=== PATIENT | male | born 1960 | race Hispanic/Latino ===

== ENCOUNTER → 2018-06-21 | Outpatient (CLI) | payer BC ==
[~2018-06-21] MED LIST: GADOBENATE DIMEGLUMINE 1 ML IV ONE
[2018-06-21 08:11] LABS: CREATININE, SERUM 1.27 mg/dL (0.72-1.25)
--- NOTE | 2018-06-22 09:40 | Diagnostic Imaging Report ---
EXAMINATION: MRI Abdomen with and without contrast. TECHNIQUE: Axial T1 nonfat sat in and out of phase, axial T2 fat sat, coronal T2 with and without fat sat, axial DWI and ADC MR images of the abdomen were obtained before and after the administration of 19 cc of gadolinium. Axial T1 fat sat GRE dynamic images in precontrast, arterial, venous and delayed phases were obtained. Subtraction images were also performed. CLINICAL HISTORY:Abdominal pain for several months COMPARISON: None FINDINGS: LOWER THORAX: Linear opacity in the posteromedial left lower lobe likely represents subsegmental atelectasis.. LIVER: The hepatic size and contour are normal.. Diffuse signal dropout of the hepatic parenchyma on out of phase images, consistent with steatosis . No focal hepatic lesions. BILIARY: No intra or extrahepatic biliary ductal dilation. No intraluminal filling defects. Normal luminal contour and tapering to the ampulla.. Gallbladder is not visualized.. PANCREAS: No mass or ductal dilatation. SPLEEN: No splenomegaly. ADRENALS: No nodules. KIDNEYS: No hydronephrosis or solid enhancing mass in the imaged portion of the kidneys. PERITONEUM / RETROPERITONEUM: No upper abdominal free fluid. GI TRACT: The visualized bowel shows no dilation or obstruction. LYMPH NODES: No upper abdominal lymphadenopathy. VESSELS: The celiac trunk, superior and inferior mesenteric and bilateral renal arteries are patent. The portal, superior mesenteric and splenic veins are patent. No collateral circulation. BONES AND SOFT TISSUES: No abnormal bone marrow signal. No soft tissue abnormalities. IMPRESSION: 1. Diffuse hepatic steatosis (calculated hepatic fat fraction 21.5%, hepatic fat percentage 24.5%, consistent with moderate steatosis). No focal lesions. 2. Otherwise, essentially unremarkable abdominal MRI Signed by: Dr. Kong Hou M.D. on 06/22/2018 9:37 AM
== END ==
LOC: MRI 07:13
PROVIDERS: ATTEND Internal Medicine Gastroenterology
DX: R10.9 Unspecified abdominal pain (principal)
CPT/HCPCS: 36415; 74183; 82565; 84520; A9577

== ENCOUNTER 2025-01-24 11:01 | Inpatient (IN) | payer BC ==
[~2025-01-24] VITALS: Ht 172.7 cm; Wt 86.2 kg
[2025-01-24 11:35] LABS: BASOPHILS # (AUTO) 0.1 (0.0-0.1); BASOPHILS % 0.4 % (0.0-1.0); EOSINOPHILS # (AUTO) 3.1 (0.0-0.4); EOSINOPHILS % 15.9 % (0.0-6.0); HEMATOCRIT 51.2 % (38.2-49.6); HEMOGLOBIN 16.9 g/dL (14.0-18.0); LYMPHOCYTES # (AUTO) 2.6 (1.0-3.2); LYMPHOCYTES % 13.5 % (18.0-39.1); MEAN CORPUSCULAR HEMOGLOBIN 28.4 pg (28-32); MEAN CORPUSCULAR VOLUME 85.9 fL (81-99); MONOCYTES # (AUTO) 0.9 (0.2-0.8); MONOCYTES % 4.8 % (4.4-11.3); NEUTROPHILS # (AUTO) 12.4 (2.1-6.9); NEUTROPHILS % 64.7 % (38.7-80.0); PLATELET COUNT 207 x10e3/uL (140-360); RED BLOOD COUNT 5.96 x10e6/uL (4.3-5.7)
[2025-01-24 11:44] LABS: INR 1.01; PROTHROMBIN TIME 14.2 seconds (11.9-14.5)
[2025-01-24 11:45] LABS: PARTIAL THROMBOPLASTIN TIME 27.1 seconds (23.8-35.5)
[2025-01-24 11:55] LABS: ALBUMIN 3.6 g/dL (3.5-5.0); ALBUMIN/GLOBULIN RATIO 1.1 (0.8-2.0); ANION GAP 17.8 mmol/L (8-16); BILIRUBIN,TOTAL 0.4 mg/dL (0.2-1.2); CREATININE, SERUM 1.89 mg/dL (0.72-1.25); MAGNESIUM 1.6 MG/DL (1.3-2.1); POTASSIUM 3.8 mmol/L (3.5-5.1); TOTAL PROTEIN 6.9 g/dL (6.5-8.1)
[2025-01-24] MEDS: SODIUM CHLORIDE 0.9% 1000ML 1,000 ML IV STA ×2 (12:09→12:10)
[2025-01-24] MEDS: ONDANSETRON HCL INJ 2MG/ML 2ML 2 MG/ML VIAL IV STA (12:10)
[2025-01-24] MEDS ORDERED: IOPAMIDOL 370 MG/ML 100 ML INFUS..BTL INJ ONE (12:14)
[2025-01-24 12:15] LABS: THYROID STIMULATING HORMONE 1.605 uIU/mL (0.350-4.940); TROPONIN I 0.001 ng/mL (0-0.300)
[2025-01-24] MEDS ORDERED: ONDANSETRON HCL INJ 2MG/ML 2ML 2 MG/ML VIAL IV PRN (14:45)
[2025-01-24 15:11] LABS: BILIRUBIN,URINE NEGATIVE (NEGATIVE); CLARITY,URINE CLEAR (CLEAR); COLOR,URINE YELLOW (YELLOW); GLUCOSE, URINE 500 (NEGATIVE); KETONES,URINE NEGATIVE (NEGATIVE); LEUKOCYTE ESTERASE ,URINE NEGATIVE (NEGATIVE); NITRITE,URINE NEGATIVE (NEGATIVE); PH,URINE 5.5 (5 - 7); PROTEIN,URINE DIPSTICK NEGATIVE (NEGATIVE); URINE UROBILINOGEN 0.2 mg/dL (0.2 - 1)
[2025-01-24 15:42] LABS: BACTERIA,URINE FEW /HPF; EPITHELIAL CELLS,URINE FEW /LPF; RBC,URINE 0-5 /HPF (0-5); TRANSITIONAL EPI CELLS,URINE FEW; WBC,URINE (MAN) 0-5 /HPF (0-5)
[2025-01-24 16:01] VITALS: PULSE 84; RESP 16; TEMP 98.5
[2025-01-24] MEDS: SODIUM CHLORIDE 0.9% 1000ML 1,000 ML IV SCH (16:16)
[2025-01-24 16:55] VITALS: BP 110/67; O2SAT 99
[2025-01-24 17:00] VITALS: BP 104/65; PULSE 94; RESP 18; TEMP 97.7; O2SAT 100
[2025-01-24 17:10] VITALS: BP 104/65; PULSE 94; RESP 18; TEMP 97.7; O2SAT 100
[2025-01-24] MEDS ORDERED: XIGDUO XR 10 M1 EAC1 PO (17:56)
[2025-01-24] MEDS ORDERED: FLOMAX0.4 MG PO (17:56)
[2025-01-24] MEDS ORDERED: OTEZLA30 MG PO (17:56)
[2025-01-24] MEDS ORDERED: VALSARTAN160 MG PO (17:56)
[2025-01-24] MEDS ORDERED: TOUJEO SOL300 UNIT/1 SC (17:56)
[2025-01-24] MEDS: ZOLPIDEM TARTRATE 5 MG TAB PO PRN (22:13)
[2025-01-25] VITALS (12 sets, daily range): BP systolic 98–159; BP diastolic 60–77; PULSE 72–95; RESP 16–18; TEMP 97.6–98.1; O2SAT 95–100
[2025-01-25 06:14] LABS: BASOPHILS # (AUTO) 0.1 (0.0-0.1); BASOPHILS % 0.3 % (0.0-1.0); EOSINOPHILS # (AUTO) 4.7 (0.0-0.4); HEMATOCRIT 44.5 % (38.2-49.6); HEMOGLOBIN 14.6 g/dL (14.0-18.0); LYMPHOCYTES # (AUTO) 2.7 (1.0-3.2); LYMPHOCYTES % 17.9 % (18.0-39.1); MEAN CORPUSCULAR HEMOGLOBIN 28.6 pg (28-32); MEAN CORPUSCULAR HGB CONC 32.8 g/dL (31-35); MEAN CORPUSCULAR VOLUME 87.1 fL (81-99); MONOCYTES # (AUTO) 0.7 (0.2-0.8); MONOCYTES % 4.9 % (4.4-11.3); NEUTROPHILS # (AUTO) 6.8 (2.1-6.9); NEUTROPHILS % 45.1 % (38.7-80.0); PLATELET COUNT 186 x10e3/uL (140-360); RED BLOOD COUNT 5.11 x10e6/uL (4.3-5.7); WHITE BLOOD COUNT 15.01 x10e3/uL (4.8-10.8)
[2025-01-25 06:42] LABS: ALBUMIN/GLOBULIN RATIO 1.1 (0.8-2.0); ANION GAP 12.7 mmol/L (8-16); BILIRUBIN,TOTAL 0.3 mg/dL (0.2-1.2); CREATININE, SERUM 1.46 mg/dL (0.72-1.25); POTASSIUM 3.7 mmol/L (3.5-5.1); TOTAL PROTEIN 5.7 g/dL (6.5-8.1)
[2025-01-25 07:13] LABS: CREATINE KINASE 58 IU/L (30-200)
[2025-01-25 07:21] LABS: TROPONIN I < 0.001 ng/mL (0-0.300)
[2025-01-25] MEDS: LOPERAMIDE HCL 2 MG CAP PO PRN (08:15)
[2025-01-25 10:42] LABS: EOSINOPHILS % (MANUAL) 21 % (0-7); LYMPHOCYTES % (MANUAL) 21 % (19-48); MONOCYTES % (MANUAL) 6 % (3.4-9.0); NEUTROPHILS % (MANUAL) 51 % (40-74); PLATELET ESTIMATE ADEQUATE; PLATELET MORPHOLOGY COMMENT NORMAL; REACTIVE LYMPHOCYTES 1
[2025-01-25 10:43] LABS: RBC MORPHOLOGY COMMENT NORMAL
[2025-01-25] MEDS ORDERED: ACETAMINOPHEN 325 MG TAB PO PRN (13:00)
[2025-01-25] MEDS ORDERED: LABETALOL HCL 5 MG/ML 20ML VIAL IV PRN (13:00)
[2025-01-25 14:10] LABS: CREATINE KINASE 34 IU/L (30-200)
[2025-01-25 14:16] LABS: TROPONIN I < 0.001 ng/mL (0-0.300)
[2025-01-25] MEDS: MELATONIN 3 MG TAB PO SCH (21:21)
[2025-01-26] VITALS (10 sets, daily range): BP systolic 146–180; BP diastolic 70–93; PULSE 80–87; RESP 16–20; TEMP 97.5–98.3; O2SAT 97–100
[2025-01-26 05:50] LABS: BASOPHILS # (AUTO) 0.1 (0.0-0.1); BASOPHILS % 0.4 % (0.0-1.0); EOSINOPHILS # (AUTO) 4.6 (0.0-0.4); EOSINOPHILS % 35.9 % (0.0-6.0); HEMATOCRIT 41.2 % (38.2-49.6); HEMOGLOBIN 13.7 g/dL (14.0-18.0); LYMPHOCYTES # (AUTO) 2.6 (1.0-3.2); LYMPHOCYTES % 20.2 % (18.0-39.1); MEAN CORPUSCULAR HEMOGLOBIN 28.3 pg (28-32); MEAN CORPUSCULAR HGB CONC 33.3 g/dL (31-35); MEAN CORPUSCULAR VOLUME 85.1 fL (81-99); MONOCYTES # (AUTO) 0.5 (0.2-0.8); MONOCYTES % 3.9 % (4.4-11.3); NEUTROPHILS # (AUTO) 5.1 (2.1-6.9); NEUTROPHILS % 39.1 % (38.7-80.0); PLATELET COUNT 173 x10e3/uL (140-360); RED BLOOD COUNT 4.84 x10e6/uL (4.3-5.7); RED CELL DISTRIBUTION WIDTH 13.8 % (11.7-14.4)
[2025-01-26 06:07] LABS: ALBUMIN 2.9 g/dL (3.5-5.0); ALBUMIN/GLOBULIN RATIO 1.1 (0.8-2.0); ANION GAP 10.7 mmol/L (8-16); BILIRUBIN,TOTAL 0.2 mg/dL (0.2-1.2); CREATININE, SERUM 0.92 mg/dL (0.72-1.25); PHOSPHORUS 2.6 MG/DL (2.3-4.7); POTASSIUM 3.7 mmol/L (3.5-5.1); TOTAL PROTEIN 5.5 g/dL (6.5-8.1)
[2025-01-26] MEDS: TAMSULOSIN HCL 0.4 MG CAP PO SCH (09:50)
[2025-01-26] MEDS: PANTOPRAZOLE SOD 40 MG TABEC PO SCH (09:50)
[2025-01-26 11:08] LABS: EOSINOPHILS % (MANUAL) 22 % (0-7); LYMPHOCYTES % (MANUAL) 28 % (19-48); MONOCYTES % (MANUAL) 2 % (3.4-9.0); NEUTROPHILS % (MANUAL) 48 % (40-74); NUCLEATED RED BLOOD CELLS 1
[2025-01-26 11:09] LABS: PLATELET ESTIMATE ADEQUATE; PLATELET MORPHOLOGY COMMENT NORMAL; RBC MORPHOLOGY COMMENT NORMAL
[2025-01-26] MEDS: MAGNESIUM SULFATE 2GM/50ML 50 ML IV ONE (13:17)
[2025-01-26] MEDS: OMEPRAZOLE 20 MG CAP PO ONE (20:47)
[2025-01-26] MEDS: METOPROLOL SUCCINATE 25 MG TAB XL PO SCH (20:50)
[2025-01-27] VITALS (7 sets, daily range): BP systolic 147–171; BP diastolic 86–92; PULSE 75–85; RESP 18–22; TEMP 97.6–98.3; O2SAT 96–100
[2025-01-27 06:24] LABS: BASOPHILS # (AUTO) 0.1 (0.0-0.1); BASOPHILS % 0.5 % (0.0-1.0); EOSINOPHILS # (AUTO) 3.9 (0.0-0.4); EOSINOPHILS % 32.2 % (0.0-6.0); HEMATOCRIT 41.7 % (38.2-49.6); LYMPHOCYTES # (AUTO) 2.6 (1.0-3.2); MEAN CORPUSCULAR HEMOGLOBIN 28.5 pg (28-32); MEAN CORPUSCULAR HGB CONC 33.6 g/dL (31-35); MEAN CORPUSCULAR VOLUME 84.8 fL (81-99); MONOCYTES # (AUTO) 0.6 (0.2-0.8); MONOCYTES % 4.8 % (4.4-11.3); NEUTROPHILS % 41.1 % (38.7-80.0); PLATELET COUNT 171 x10e3/uL (140-360); RED BLOOD COUNT 4.92 x10e6/uL (4.3-5.7); RED CELL DISTRIBUTION WIDTH 13.5 % (11.7-14.4); WHITE BLOOD COUNT 12.13 x10e3/uL (4.8-10.8)
[2025-01-27 06:57] LABS: ANION GAP 8.9 mmol/L (8-16); CALCIUM 8.5 mg/dL (8.4-10.2); CREATININE, SERUM 1.06 mg/dL (0.72-1.25); MAGNESIUM 1.6 MG/DL (1.3-2.1); POTASSIUM 3.9 mmol/L (3.5-5.1)
[2025-01-27] MEDS: VALSARTAN 160 MG TAB PO SCH (09:22)
[2025-01-27] MEDS: METFORMIN HCL 500 MG TAB PO SCH (09:22)
[2025-01-27] MEDS: OMEPRAZOLE 20 MG CAP PO SCH (09:24)
[2025-01-27] MEDS: SODIUM CHLORIDE 0.9% 500ML 500 ML IV ONE (09:32)
[2025-01-27] MEDS: MAGNESIUM SULFATE 2GM/50ML 50 ML IV ONE (09:32)
[2025-01-27] MEDS: MAGNESIUM SULF 1GRAM/DEXTROSE 100 ML IV ONE (11:32)
[2025-01-27] MEDS ORDERED: IMODIUM2 MG PO (12:46)
[2025-01-27] MEDS ORDERED: OMEPRAZOLE20 MG PO (12:46)
[2025-01-27] MEDS ORDERED: METRONIDAZOLE500 MG PO (12:46)
[2025-01-27] MEDS ORDERED: TOPROL XL25 MG PO (12:46)
[2025-01-27] MEDS: METOPROLOL SUCCINATE 25 MG TAB XL PO ONE (12:50)
[2025-01-28] MEDS ORDERED: METOPROLOL SUCCINATE 25 MG TAB XL PO SCH (09:00)
== END 2025-01-27 18:07 | disposition home or self-care (01) | DRG 372 ==
LOC: ER 11:18 → ERHOLD 14:49 → MED/SURG2 16:44 → MED/SURG 01-25 19:34
PROVIDERS: ADMIT Internal Medicine; ATTEND Internal Medicine
DX: A04.9 Bacterial intestinal infection, unspecified (principal); E87.20 Acidosis, unspecified; N17.9 Acute kidney failure, unspecified; J98.11 Atelectasis; E86.0 Dehydration; E11.9 Type 2 diabetes mellitus without complications; K21.9 Gastro-esophageal reflux disease without esophagitis; L40.9 Psoriasis, unspecified; R00.0 Tachycardia, unspecified; I10 Essential (primary) hypertension; K76.0 Fatty (change of) liver, not elsewhere classified; E83.42 Hypomagnesemia; G47.00 Insomnia, unspecified; D72.829 Elevated white blood cell count, unspecified; Z90.49 Acquired absence of other specified parts of digestive tract; Z80.42 Family history of malignant neoplasm of prostate; Z79.4 Long term (current) use of insulin
CPT/HCPCS: 36415; 71045; 74177; 80048; 80053; 80061; 81001; 82550; 82948; 83036; 83605; 83630; 83735; 83993; 84100; 84443; 84484; 85025; 85610; 85730; 87040; 87045; 87086; 87177; 87328; 93005; 94799; 99284; J0696; J2405; J2470; J2543; J3475; J7030; J7040; Q9967